=== PATIENT | male | born 1970 | race Caucasian/White ===

== ENCOUNTER 2018-08-16 08:56 | Day surgery (SDC) | payer OTHER ==
[2018-08-16] MEDS ORDERED: FAMOTIDINE 20 MG TAB PO ONE (09:01)
[2018-08-16] MEDS ORDERED: diphenhydrAMINE 25 MG CAP PO ONE ×2 (09:01→09:16)
[2018-08-16] MEDS ORDERED: ASPIRIN EC 325 MG TAB PO ONE ×2 (09:01→09:16)
[2018-08-16] MEDS ORDERED: DIAZEPAM 5 MG TAB PO ONE (09:01)
[2018-08-16] MEDS ORDERED: NS 1,000 ML IV ONE (09:01)
[2018-08-16] MEDS ORDERED: FAMOTIDINE 20 MG TAB ONE (09:16)
[2018-08-16] MEDS ORDERED: DIAZEPAM 5 MG TAB ONE (09:17)
[2018-08-16 09:36] LABS: PLATELET COUNT 218 10^3/uL (150-400)
[2018-08-16] MEDS ORDERED: fentaNYL 100 MCG/2 ML INJ ONE (09:58)
[2018-08-16] MEDS ORDERED: MIDAZOLAM 2 MG/2 ML VIAL ONE (09:58)
[2018-08-16 09:59] LABS: INR 0.98 (0.83-1.16); PROTIME(PATIENT) 12.6 SEC (12.0-15.0)
[2018-08-16] MEDS ORDERED: VERAPAMIL 5 MG/2 ML VIAL ONE (09:59)
[2018-08-16] MEDS ORDERED: LIDOCAINE 1% 5 ML SDV ONE (09:59)
[2018-08-16] MEDS ORDERED: IOPAMIDOL (ISOVUE 370) 100 ML BTL IV ONE (09:59)
[2018-08-16] MEDS ORDERED: HEPARIN 10,000 UNIT/10 ML MDV (1,000 UNIT/ML) ONE (09:59)
--- NOTE | 2018-08-16 10:16 | PDHPUP ---
History & Physical Update H&P update statement: This history and physical update is based on an assessment of the patient which was completed after admission or registration (within 24 hours), but prior to the surgery/procedure. H&P update: H&P reviewed & patient examined, no change in patient's condition since H&P completed
--- NOTE | 2018-08-16 10:17 | PDPROPOC ---
Sedation Plan of Care Sedation Plan of Care: vital signs stable, mental status noted, patient educated of risks, benefits, alternatives, patient can tolerate sedation ASA Classification: ASA 1 Planned drugs: fentanyl, midazolam Mallampati Score: Class 2 Mallampati Reference Image: Patient passed 3-3-2 rule?: Yes
[2018-08-16] MEDS ORDERED: OXYCODONE/APAP 5/325 TAB PO PRN (11:16)
[2018-08-16] MEDS ORDERED: HYDROCODONE/APAP 5/325 TAB PO PRN (11:16)
[2018-08-16] MEDS ORDERED: NITROGLYCERIN 0.4 MG BTL SL PRN (11:16)
[2018-08-16] MEDS ORDERED: ATROPINE SULFATE 1 MG/10 ML SYR IVP PRN (11:16)
[2018-08-16] MEDS ORDERED: ONDANSETRON 4 MG/2 ML VIAL IVP PRN (11:16)
--- NOTE | 2018-08-16 11:21 | PDDXCAT ---
Diagnostic Cath Note - . Date: 08/16/18 Examining Officer: Golden Indication: other (Chest pain, abnormal nuclear stress test, and history of CAD with prior PCIs.) - Procedure Access: right wrist Procedure: left heart catheterization, coronary angiography, left ventriculogram - Materials Left Heart Cath size: 5F Left Heart Cath materials: other (TIG and Pigtail) - Findings-Left Heart Catheterization LM: Normal. LAD: Fluoroscopy reveals the presence of a previously stented segment in the principal diagonal branch of the LAD. Angiography reveals minimal atherosclerotic changes in the LAD. There is a muscle bridge producing mild systolic compression of the mid-LAD. The stented segment of the principal diagonal branch is widely patent. LCX: The circumflex and its obtuse marginal branches demonstrate minimal atherosclerotic changes. RCA: Fluoroscopy reveals the presence of a previously stented segment spanning from the proximal RCA to the distal vessel. Angiography reveals focal 20-30% restenosis in the mid to distal portion of the stented segment. The PDA and posterolateral branches have minimal atherosclerosis. Ramus: The ramus intermedius has minimal atherosclerotic changes. EDP: 14 mmHg LVEF: 75% Wall motion: Normal. Complications: None Estimated blood loss: <50ml Closure method: TR Band Assessment: 1) Patent sites of prior stent placement in the RCA and the principal diagonal branch of the LAD. 2) Otherwise minimal luminal irregularities. 3) Normal left ventricular systolic function.
== END 2018-08-16 14:19 | disposition home or self-care (01) ==
LOC: FCATH 08:56
PROVIDERS: ATTEND Internal Medicine Interventional Cardiology
DX: R07.89 Other chest pain (principal); R53.82 Chronic fatigue, unspecified; R94.39 Abnormal result of other cardiovascular function study; I47.2 Ventricular tachycardia; I25.10 Atherosclerotic heart disease of native coronary artery without angina pectoris; T82.855A Stenosis of coronary artery stent, initial encounter; Z95.5 Presence of coronary angioplasty implant and graft
CPT/HCPCS: 93458; C1769; J1644; J2250; J3010; Q9967